=== PATIENT | female | born 1965 | race Hispanic/Latino ===

== ENCOUNTER → 2017-02-15 | Outpatient (CLI) | payer BC ==
--- NOTE | 2017-02-15 16:13 | Diagnostic Imaging Report ---
PROCEDURE:TRANSVAGINAL ULTRASOUND COMPARISON:None. INDICATIONS:pelvic pain TECHNIQUE: Grayscale transverse and sagittal transabdominal and transvaginal images were obtained of the pelvis. Transvaginal imaging was medically necessary to better evaluate the endometrium.. FINDINGS: 51 year-old female patient G1, P1, with stated LMP 01/22/2017 UTERUS: 12.9 x 3.6 x 7.2 cm. Anteverted position. 5.3 x 4.1 x 5.2 cm likely intramural fibroid in the fundus. No other focal lesions. Multiple anechoic nabothian cysts are noted in the cervix. ENDOMETRIUM: 0.4 cm. Homogeneous echogenicity, without focal thickening. RIGHT OVARY: 3.3 x 2.1 x 2.1 cm. 1.4 x 1.0 x 1.0 cm and 1.6 x 1.2 x 1.7 cm cystic, anechoic follicles. LEFT OVARY: 4.1 x 3.3 x 3.6 cm. 2.8 x 2.9 x 3.2 cm mostly anechoic cystic structure in the left ovary, with fine, reticular lacy internal echoes, likely representing a hemorrhagic cyst. No adnexal masses. There is no free fluid within the pelvis. CONCLUSION: 1. 5.3 cm fibroid in the uterine fundus. 2. 2.9 cm hemorrhagic cyst in the left ovary. No further followup is indicated. Memo Corona M.D. Dictated by: Memo Corona M.D. on 02/15/2017 at 16:22 Electronically approved by: Memo Corona M.D. on 02/15/2017 at 16:22
--- NOTE | 2017-02-15 16:14 | Diagnostic Imaging Report ---
PROCEDURE:US PELVIS COMPLETE NON OB COMPARISON:None. INDICATIONS:pelvic pain CONCLUSION: Please refer to transvaginal ultrasound performed at the same date and time for full dictated report. Memo Corona M.D. Dictated by: Memo Corona M.D. on 02/15/2017 at 16:22 Electronically approved by: Memo Corona M.D. on 02/15/2017 at 16:22
== END ==
LOC: US 12:42
PROVIDERS: ATTEND Family Medicine
DX: R10.2 Pelvic and perineal pain (principal)
CPT/HCPCS: 76830; 76856